=== PATIENT | female | born 1955 | race Two or more races ===

== ENCOUNTER 2017-04-26 15:58 | Emergency (ER) | payer SELFPAY, OTHER | END 2017-04-26 17:35 | disposition left against medical advice (07) | LOC: M ED 15:58 | DX: N64.4 Mastodynia (principal); M79.89 Other specified soft tissue disorders; Z53.21 Procedure and treatment not carried out due to patient leaving prior to being seen by health care provider ==

== ENCOUNTER → 2019-01-12 | Outpatient (REF) | payer BC ==
[~2019-01-12] MED LIST: ATEN50TA2 PO; ATOR1TAB21 PO; DILT300C21 PO; FLUO40CA PO; METO1TAB7 PO; RANI150T PO; TRIAMTERENE-HCTZ
== END ==
LOC: M LAB LCGH 11:56
PROVIDERS: ATTEND Family Medicine
DX: Z12.4 Encounter for screening for malignant neoplasm of cervix (principal)

== ENCOUNTER → 2023-09-09 | Outpatient (REF) | payer MEDICARE | LOC: M SFHCDERM 17:45 | PROVIDERS: ATTEND Nurse Practitioner Family | DX: D22.39 Melanocytic nevi of other parts of face (principal) ==